=== PATIENT | male | born 1950 | race Caucasian/White ===

== ENCOUNTER 2017-06-27 18:10 | Observation (INO) | payer OTHER ==
[~2017-06-27] VITALS: Ht 165 cm; Wt 79.8 kg
--- NOTE | 2017-06-27 18:22 | ED CARDIAC/CP/PALPITATIONS ---
History of Present Illness General Chief Complaint: Chest Pain Stated Complaint: CP Source: patient, family Exam Limitations: language barrier Vital Signs & Intake/Output Vital Signs & Intake/Output Vital Signs Date Time Temp Pulse Resp B/P B/P Pulse O2 O2 Flow FiO2 Mean Ox Delivery Rate 06/30 0811 124/70 06 0600 98.1 63 20 124/76 97 03/05 2203 97.6 81 20 120/80 96 03/ 2147 68 128/70 03/05 1603 98.0 70 20 120/70 94 ED Intake and Output 06/30 0000 06/29 1200 Intake Total 860 0 Output Total 650 Balance 210 0 Intake, IV 60 Intake, Oral 800 0 Output, Urine 650 Patient 176 lb Weight Allergies Coded Allergies: No Known Allergies (06/27/17) Reconcile Medications Aspirin (Aspirin*) 81 MG TAB.CHEW 81 MG PO DAILY HEART Atorvastatin Calcium 20 MG TABLET 1 TAB PO DAILY CHOLESTEROL (Reported) [CARDIOPIRIN] (Unknown Strength) MG 1 TAB PO DAILY HEART (Reported) [LERCANIDIPINE/ENALPR] (Unknown Strength) 0.5 TAB PO BID BP (Reported) Metoprolol Tartrate (Lopressor) 100 MG TABLET 0.5 TAB PO BID HEART/BP ( Reported) Triage Nurses Notes Reviewed? yes Onset: Gradual Duration: week(s): Timing: recent history Quality/Severity: moderate Location: substernal Radiation: no radiation Activities at Onset: activity HPI: 67-year-old male with history of hypertension, hyperlipidemia presents emergency department complaining of chest pain intermittently 1 week. HPI obtained from the patient's daughter who is present for translation as patient does not speak Khmer. Chest pain is described as substernal, without radiation, exacerbated by exertion, associated with dyspnea. Currently, while the patient is at rest he denies active chest pain. Patient has no history of prior chest pain. Patient has seen a pan pusher formerly in [facility] however has been living in the [place] for 8 months and has had no primary care cardiology visits here. The patient's father had acute myocardial infarction at age of 61, patient's brother has had VT in his 50s. The patient denies tobacco use, drug use, presyncope, abdominal pain, fever, chills, vomiting. (Kati MARIN,Fallon Herring) Past History Travel History Traveled to [place] past 21 day No Medical History Any Pertinent Medical History? see below for history Neurological: NONE EENT: NONE Cardiovascular: hypertension Respiratory: NONE Gastrointestinal: NONE Hepatic: NONE Renal: NONE Musculoskeletal: NONE Psychiatric: NONE Endocrine: NONE Blood Disorders: NONE Cancer(s): NONE MORTGAGE OR LOAN UNDERWRITER/Reproductive: NONE Surgical History Surgical History: non-contributory Psychosocial History What is your primary language Setswana Tobacco Use: Never used ETOH Use: denies use Illicit Drug Use: denies illicit drug use Family History Family History, If Any: FATHER Relation not specified for: FH: myocardial infarction Hx Contributory? Yes (Fallon Gunderson) Review of Systems Review of Systems Constitutional: Reports: no symptoms. EENTM: Reports: no symptoms. Respiratory: Reports: see HPI. Cardiovascular: Reports: see HPI. GI: Reports: no symptoms. Genitourinary: Reports: no symptoms. Musculoskeletal: Reports: no symptoms. Skin: Reports: no symptoms. Neurological/Psychological: Reports: no symptoms. Hematologic/Endocrine: Reports: no symptoms. Immunologic/Allergic: Reports: no symptoms. All Other Systems: Reviewed and Negative (Fallon Gunderson) Physical Exam Physical Exam General Appearance: well developed/nourished, no apparent distress, alert, awake Head: atraumatic, normal appearance Eyes: Bilateral: normal appearance. Ears, Nose, Throat: hearing grossly normal Neck: normal inspection, supple, full range of motion Respiratory: normal breath sounds, chest non-tender, no respiratory distress, lungs clear Cardiovascular: regular rate/rhythm, normal peripheral pulses Peripheral Pulses: 2+ radial (R), 2+ radial (L) Gastrointestinal: normal bowel sounds, soft, non-tender, no organomegaly Back: normal inspection, normal range of motion Extremities: normal inspection, normal range of motion, no edema Neurologic/Psych: awake, alert, oriented x 3 Skin: intact, normal color, warm/dry Core Measures ACS in differential dx? Yes CVA/TIA Diagnosis No Sepsis Present: No Sepsis Focused Exam Completed? No (Fallon Gunderson) Progress Differential Diagnosis: AMI, atrial fibrillation, CHF/pulm edema, costochondritis Plan of Care: Orders Procedure Date/time Status BASIC ELECTROLYTES PLUS BUN&CR 06/30 0600 Complete Discharge Patient 06/30 UNK Active Laboratory Tests 06/30/17 0652: Anion Gap 11, Estimated GFR > 60, BUN/Creatinine Ratio 19.1 03/05/18 1500: APTT Cancelled Patient's EKG in sinus rhythm with PVCs. Troponin negative, chest x-ray within normal limits. Spoke with Dr. Lilly regarding this patient - given patient's chest pain on exertion telemetry observation recommended to further rule out acute coronary syndome. Patient is already on statin medication, will initiate aspirin 325 daily. Patient and he daughter agree to stay for futher evaluation of his chest pain. Discussed patient with Dr. Akhtar and hospitalist Dr. Garrett regarding telemetry observation. Diagnostic Imaging: Viewed by Me: Radiology Read. Discussed w/RAD: Radiology Read. Radiology Impression: PATIENT: HIREN DAVISON PRESENT AGE: 67 PATIENT ACCOUNT NO: [id number] : 52 LOCATION: [facility] ORDERING PHYSICIAN: Fallon MARIN SERVICE DATE: 06/27/17 EXAM TYPE: RAD - XRY-CHEST XRAY, TWO VIEWS EXAMINATION: XR CHEST CLINICAL INFORMATION: Chest pain. Dyspnea. COMPARISON: None TECHNIQUE: 2 views of the chest were obtained. FINDINGS: No significant abnormality is noted involving the heart, lungs, mediastinum, bony thorax or soft tissues. Age indeterminant L1 vertebral body anterior wedging. IMPRESSION: No acute pulmonary pathology demonstrated. No radiographic explanation for the patient's clinical symptoms. Age indeterminant L1 vertebral body anterior wedging. DICTATED BY: Preston Paul MD DATE/TIME DICTATED:06/27/171918 PAPER SHEETER:RASHARD DATE/TIME TRANSCRIBED:1918 CONFIDENTIAL, DO NOT COPY WITHOUT APPROPRIATE AUTHORIZATION. < Electronically signed in Other Vendor System> SIGNED BY: Preston Paul MD 06/27/171921 Initial ED EKG: sinus rhythm @78bpm, PVCs, nonspecific ST changes (Kati MARIN,Fallon Herring) Departure Departure Disposition: STILL A PATIENT Condition: Stable Clinical Impression Primary Impression: Chest pain Qualifiers: Chest pain type: unspecified Qualified Code: R07.9 - Chest pain, unspecified Secondary Impressions: Unstable angina Departure Forms: Customer Survey General Discharge Information Prescriptions: Current Visit Scripts Aspirin (Aspirin*) 81 MG PO DAILY #30 TAB Observation Note Spoke With: Hoa Sidhu MDakosua Place Patient In: Non-ED OBS Care Area Rationale for Observation: My rational for observation is as follows [chest pain and dyspnea requiring ACS rule out, repeat EKGs and troponins, cardiology consult, medication adjustment, premature discharge would be medically unsafe.]. (Kati MARIN,Fallon Herring) PA/HOOK UP DRIVER Co-Sign Statement Statement: ED Attending supervision documentation- x I saw and evaluated the patient. I have also reviewed all the pertinent lab results and diagnostic results. I agree with the findings and the plan of care as documented in the PA's/HOOK UP DRIVER's documentation. exertional chest pain, poor f/u care [] I have reviewed the ED Record and agree with the PA's/HOOK UP DRIVER's documentation. [] Additions or exceptions (if any) to the PAs/HOOK UP DRIVER's note and plan are summarized below: [] (Giovana HDEZ,Dillon) Critical Care Note Critical Care Note Critical Care Time: non-applicable (Fallon Gunderson)
[2017-06-27 18:48] LABS: ABSOLUTE BASOPHIL COUNT 0.1 /CUMM (0.0-0.2); ABSOLUTE EOSINOPHIL COUNT 0.5 /CUMM (0.0-0.7); ABSOLUTE GRANULOCYTE CT 5.7 /CUMM (1.4-6.5); ABSOLUTE LYMPH COUNT 3.9 /CUMM (1.2-3.4); BASOPHIL % 0.7 % (0.0-2.0); EOSINOPHIL % 4.8 % (0-5); HEMATOCRIT 45.9 % (42-52); MEAN CORPUSCULAR HGB 30.3 PG (27.0-31.0); MEAN CORPUSCULAR HGB CONC 33.1 G/DL (33.0-37.0); MEAN CORPUSCULAR VOLUME 91.8 FL (80.0-94.0); PLATELET COUNT 229 /CUMM (130-400); RBC DISTRIBUTION WIDTH 13.9 % (11.5-14.5); WHITE BLOOD CELL COUNT 11.1 /CUMM (4.8-10.8)
[2017-06-27] MEDS ORDERED: ATORVASTATIN CA20 M1 PO (19:10)
[2017-06-27] MEDS ORDERED: LOPRESSOR100 M1 PO (19:10)
[2017-06-27] MEDS ORDERED: [UNRECOGNIZED DRUG - MIXTURE] PO (19:13)
[2017-06-27] MEDS ORDERED: [UNRECOGNIZED DRUG - OTHER] PO (19:14)
--- NOTE | 2017-06-27 19:22 | RADIOLOGY REPORT ---
EXAMINATION: XR CHEST CLINICAL INFORMATION: Chest pain. Dyspnea. COMPARISON: None TECHNIQUE: 2 views of the chest were obtained. FINDINGS: No significant abnormality is noted involving the heart, lungs, mediastinum, bony thorax or soft tissues. Age indeterminant L1 vertebral body anterior wedging. IMPRESSION: No acute pulmonary pathology demonstrated. No radiographic explanation for the patient's clinical symptoms. Age indeterminant L1 vertebral body anterior wedging.
--- NOTE | 2017-06-27 21:18 | History & Physical ---
LaurentUlysses garcia 06/27/172116: General Information and HPI MD Statement: I have seen and personally examined HIREN DAVISON and documented this H&P. The patient is a 67 year old M who presented with a patient stated chief complaint of [Chest pain]. Source of Information: patient, family Exam Limitations: no limitations History of Present Illness: is a 67 yo man with PMHx. of HTN, HLD presented to ED with a c/o chest pain. Patient is maltese speaker, his daughter at bedside translating, he reprot that he has chest pain started last while he was sleeping, the pain is pressure in nature, mainly in the left side of the chest, constant, with no aggrevating or releiving factors, does not related to changing position, not associated with orthopnea or PND, no leg swelling. Pain associated with nausea, he couldn't through up, he felt he is bloaded, with decrease oral intake over the last few days because of that, he also felt dizzy, diaphoretic, unsteady gait, and he report feeling his heart beat, no LOC and no recent trauma. Patient also report frequency and burning sensation with urination. He report feeling SOB at rest, no sore throat or cough, no fever or chills and no change in bowel habits. He recently moved [place], no PCP yet. Never had this kind of chest pain, never been hospitalized except for remote history of fall and back injury. Never had stress test. Allergies/Medications Allergies: Coded Allergies: No Known Allergies (06/27/17) Past History Travel History Traveled to [place] past 21 day No Medical History Neurological: NONE EENT: NONE Cardiovascular: hypertension Respiratory: NONE Gastrointestinal: NONE Hepatic: NONE Renal: NONE Musculoskeletal: NONE Psychiatric: NONE Endocrine: NONE Blood Disorders: NONE Cancer(s): NONE QUALITY OFFICER/Reproductive: NONE Surgical History Surgical History: non-contributory Past Family/Social History Family History Relations & Conditions if any FATHER Relation not specified for: FH: myocardial infarction Psychosocial History Smoking Status: Former Smoker (quit 20 years ago) ETOH Use: denies use Illicit Drug Use: denies illicit drug use Review of Systems Review of Systems Constitutional: Reports: diaphoresis. EENTM: Reports: see HPI. Cardiovascular: Reports: chest pain, palpitations. Respiratory: Reports: short of breath. GI: Reports: bloating. Genitourinary: Reports: dysuria, frequency. Musculoskeletal: Reports: no symptoms. Skin: Reports: no symptoms. Neurological/Psychological: Reports: no symptoms. Hematologic/Endocrine: Reports: no symptoms. Immunologic/Allergic: Reports: no symptoms. All Other Systems: Reviewed and Negative Exam & Diagnostic Data Last 24 Hrs of Vital Signs/I&O Vital Signs Date Time Temp Pulse Resp B/P B/P Pulse O2 O2 Flow FiO2 Mean Ox Delivery Rate 06/27 2113 97.0 62 20 130/71 96 Room Air 06/27 1852 97 Room Air Room Air 06/27 1820 97.7 74 18 163/88 96 Room Air Physical Exam General Appearance Alert, Oriented X3, Cooperative, Mild Distress Skin No Rashes, No Breakdown, No Significant Lesion Skin Temp/Moisture Exam: Warm/Dry HEENT Atraumatic, PERRLA, EOMI, Mucous Membr. moist/pink Neck Supple, No JVD Lymphatic Axillary nl, Cervical nl Cardiovascular Regular Rate, Normal S1, Normal S2, No Murmurs Lungs Clear to Auscultation, Normal Air Movement, basilar crackles Abdomen Normal Bowel Sounds, Soft, No Tenderness Neurological Normal Speech, Strength at 5/5 X4 Ext, Sensation Intact, Cranial Nerves 3-12 NL Extremities No Edema, Normal Pulses Vascular Normal Pulses, Pulses Symmetrical Last 24 Hrs of Labs/Wil: Laboratory Tests 06/27/17 2210: Phosphorus 3.7, Magnesium 2.1, Troponin I < 0.01 06/27/17 1838: Anion Gap 12, Estimated GFR 51 L, BUN/Creatinine Ratio 13.6, Glucose 102 H, Calcium 9.8, Total Bilirubin 0.5, AST 23, ALT 35, Alkaline Phosphatase 81, Troponin I < 0.01, Total Protein 7.4, Albumin 4.2, Globulin 3.2, Albumin/ Globulin Ratio 1.3, CBC w Diff NO MAN DIFF REQ, RBC 5.00, MCV 91.8, MCH 30.3, MCHC 33.1, RDW 13.9, MPV 8.0, Gran % 51.0, Lymphocytes % 34.6, Monocytes % 8.9, Eosinophils % 4.8, Basophils % 0.7, Absolute Granulocytes 5.7, Absolute Lymphocytes 3.9 H, Absolute Monocytes 1.0 H, Absolute Eosinophils 0.5, Absolute Basophils 0.1 Diagnostic Data EKG Results SR, PVC, LEFT AXIS DEVIATION CXR Results IMPRESSION: No acute pulmonary pathology demonstrated. No radiographic explanation for the patient's clinical symptoms. Age indeterminant L1 vertebral body anterior wedging. Assessment/Plan Assessment: is a 67 yo man with PMHx. of HTN, HLD presented to ED with a c/o chest pain. His chest pain is pressure in nature, substernal, not relieved with rest, no nitroglycerin given prior to encounter, never had this kind of pain before, his pain metastases to out of 3 components of anginal pain so he has a typical chest pain. Admitted for unstable angina to rule out PA with serial EKG and troponin. Labs, imaging, as above Assessment: #Unstable angina in the setting of left axis deviation, PVCs and nonspecific ST- T wave changes with no previous EKG to compare in a patient who is on beta genesis and calcium channel genesis at home. #Urinary frequency and dysuria #History of hypertension #History of hyperlipidemia Plan: * The case was discussed with Dr. Lilly and the plan is to start IV heparin * Will trend troponins and EKG * Nitroglycerin sublingual, followed by NITRO PAST * Will start his home dose of beta genesis, will hold on calcium channel genesis * He was given high-dose aspirin at the emergency department, will start baby aspirin from tomorrow, if he start to have positive troponin start Brilinta * Patient needs cardiac catheterization, discuss with inner tube inserter about Gbiib/ iiia prior transfer to PCI tomorrow * If patient started to have positive troponin start Brilinta * High-dose statin * Echocardiogram * Will check lipid panel, thyroid function tests * Will check magnesium, potassium and phosphate and replete as needed * Will add HbA1c to his labs * Will send UA * Case management consult at a.m. as patient has no insurance DVT prophylaxis heparin GTT Full code As Ranked By This Provider Problem List: 1. Unstable angina 2. Chest pain Qualifiers Chest pain type: unspecified Qualified Code: R07.9 - Chest pain, unspecified Core Measures/Misc (01/11) Acute Coronary Syndrome ACS Diagnosis: Yes Congestive Heart Failure Congestive Heart Failure Diagnosis No Cerebrovascular Accident CVA/TIA Diagnosis: No (decreasing to 100) VTE (View Protocol) VTE Risk Factors Acute Medical Illness (he was in our) No Mechanical VTE Prophylaxis d/t N/A MechProphylax Ordered (he) No VTE Pharm Prophylaxis d/t NA PharmProphylax ordered Sepsis (View protocol) Sepsis Present: No Nahum HDEZ, [facility] 06/27/172209: General Information and HPI Allergies/Medications Home Med list Atorvastatin Calcium 20 MG TABLET 1 TAB PO DAILY CHOLESTEROL (Reported) [CARDIOPIRIN] (Unknown Strength) MG 1 TAB PO DAILY HEART (Reported) [LERCANIDIPINE/ENALPR] (Unknown Strength) 0.5 TAB PO BID BP (Reported) Metoprolol Tartrate (Lopressor) 100 MG TABLET 0.5 TAB PO BID HEART/BP ( Reported) Attending MD Review Statement Attending Statement Attending MD Statement: examined this patient, discuss w/resident/PA/BODY TRIMMER, agreed w/resident/PA/BODY TRIMMER, discussed with family, reviewed images, amended to note Attending Assessment/Plan: 67 yo M, primarily Wolof speaking, with h/o HTN, HLD, and strong family h/o CAD, is brought in for evaluation of chest pressure and dyspnea for the past 1 week. Patient reports left sided sharp chest pain under his left breast that is worse with breathing, and more recent substernal band like pressure sensation radiating to both arms that occurs on exertion and at rest, rating it at 7/10 at the time of evaluation. He felt the discomfort initially when he walked up a flight of stairs, subsequently he noted chest pressure at rest that lasted 5 hours last week. Symptoms are intermittent and are associated with dyspnea, nausea, palpitations and diaphoresis. Daughter took BP at home and it was elevated to 150-160/90-100. Patient has never had similar symptoms in the past. He also reports feeling bloated, has poor PO intake, denies heartburn. On ROS, he reports urinary frequency and burning sensation which daughter attributes to his prostate. Patient reports no prior h/o CAD or PA. He used to follow a inner tube inserter at [facility] but has not set up PCP or inner tube inserter since he moved to the 8 months ago. He has no insurance. His father is at age 61 from PA, and younger brother underwetn CABG at age 50 yrs. Patient is an ex-smoker, had a 20 pack smoking history, quit 15 yrs ago. His meds include: - Lercanidipine/enalapril (CCB/TOMAS-I)10/20 mg 1/2 tablet once daily - Cardiopirin (acetylsalicylic acid) 100 mg once daily - Corvitol (metoprolol) 100 mg 1/2 tablet BID - Atorvastatin 20 mg once daily Vitals stable. Examination unremarkable. Labs: WBC 11.1, Creat 1.4 (no baseline available), glucose 102, LFTs normal, troponin <0.01. CXR: no acute pathology. Age indeterminate L1 vertebral body anterior wedging. EKG: sinus rhythm, LAD, PVC's, Qtc 438, subtle T-wave flattening in inferior leads (no old EKG to compare). Assessment and plan: 1. Unstable angina 2. Essential hypertension 3. Hyperlipidemia 4. Family h/o CAD 5. BHUPENDRA vs. CKD - 23 hour observation on Telemetry - Monitor for arrhythmias - Initiate SL nitro and assess for symptom relief - Will consider addition of nitro paste if BP allows - Aspirin 325 mg given in ER, will start 81 mg from AM - IV heparin per PTT protocol (guaiac negative) - Continue metoprolol 50 mg BID and atorvastatin increase to 80 mg daily - Check lipid panel, TSH, free T4, HbA1c - Serial EKG and troponin - Obtain echo to assess LV function, valvular disorders, pulmonary hypertension - Cardio consult (Dr. Lilly) we discussed plan with him in the ER - If any new EKG changes or elevated troponin or persistent chest pain, may need urgent cardiac cath. - Check UA to rule out UTI - Gentle hydration, recheck BUN/ creat in AM - Case management consult patient has no insurance and daughter is worried about the expenses. Please have employment case manager discuss this with daughter. DVT ppx IV heparin. Full code Observation Initial Note - I have personally examined HIREN DAVISON on 06/27/17 at 2211. The disposition of HIREN DAVISON is uncertain at this time and before a determination can be made, he requires a period of observation for the following reasons [Unstable angina]
--- NOTE | 2017-06-27 21:48 | Cons- Cardiology ---
General Information and HPI Consulting Request Date of Consult: 06/27/17 Requested By: Nahum HDEZ,Sandra Reason for Consult: Chest pain History of Present Illness: The patient is a 67-year-old male with history of hypertension and hyperlipidemia who presents with chest pain. The patient is [place] speaking, and is seen with his daughter translating. He reports intermittent left-sided chest pain which has been occurring with exertion over the past week. He also notes that for the past few days he has had a constant left-sided chest pressure which is a 3 out of 10 without radiation. No shortness of breath. No diaphoresis. No palpitations. No lightheadedness or dizziness. No nausea or vomiting Allergies/Medications Allergies: Coded Allergies: No Known Allergies (06/27/17) Home Med List: Atorvastatin Calcium 20 MG TABLET 1 TAB PO DAILY CHOLESTEROL (Reported) [CARDIOPIRIN] (Unknown Strength) MG 1 TAB PO DAILY HEART (Reported) [LERCANIDIPINE/ENALPR] (Unknown Strength) 0.5 TAB PO BID BP (Reported) Metoprolol Tartrate (Lopressor) 100 MG TABLET 0.5 TAB PO BID HEART/BP ( Reported) Current Medications: Current Medications Sig/Terell Start time Last Medication Dose Route Stop Time Status Admin Aspirin 81 MG DAILY 06/28 1000 AC 06/28 PO 0841 Aspirin 0 .STK-MED ONE 06/27 2038 DC PO Aspirin 325 MG DAILY 06/27 2013 DC 06/27 PO 2036 Atorvastatin Calcium 40 MG 1700 06/28 1700 DC PO Atorvastatin Calcium 80 MG 1700 06/28 1700 AC PO Heparin Sodium 5,160 UNIT ONCE ONE 06/28 0830 DC (Porcine) IV 06/28 0831 Heparin Sodium 5,000 UNIT Q8 06/27 2200 CAN (Porcine) SC Heparin Sodium 25,000 UNIT Q24H 06/27 2200 AC 06/28 (Porcine) IV 0000 Sodium Chloride 500 ML Metoprolol Tartrate 50 MG BID 06/28 1000 AC 06/28 PO 0841 Nitroglycerin 0.2 MG DAILY 06/28 1000 DC TOP Nitroglycerin 0 .STK-MED ONE 06/27 2214 DC SL Nitroglycerin 0.2 MG DAILY 06/27 2200 DC TOP Nitroglycerin 0.4 MG ONCE ONE 06/27 2200 DC 06/27 SL 06/27 2200 2210 Sodium Chloride 1,000 ML Q13H 06/27 2130 DC 06/27 IV 06/28 1029 2309 Review of Systems Review of Systems: No rash. No tremor. No melena. All other systems were reviewed, and were noted to be negative. Past History Travel History Traveled to [place] past 21 day No Medical History Neurological: NONE EENT: NONE Cardiovascular: hypertension Respiratory: NONE Gastrointestinal: NONE Hepatic: NONE Renal: NONE Musculoskeletal: NONE Psychiatric: NONE Endocrine: NONE Blood Disorders: NONE Cancer(s): NONE GOLD LAYER/Reproductive: NONE Surgical History Surgical History: non-contributory Family History Relations & Conditions If Any: FATHER Relation not specified for: FH: myocardial infarction Psychosocial History ETOH Use: denies use Illicit Drug Use: denies illicit drug use Exam & Diagnostic Data Vital Signs and I&O Vital Signs Date Time Temp Pulse Resp B/P B/P Pulse O2 O2 Flow FiO2 Mean Ox Delivery Rate 06/28 0841 96 160/84 06/28 0600 98.4 69 18 134/78 95 06/27 2114 97.0 62 20 130/71 96 Room Air 06/27 1852 97 Room Air Room Air 06/27 1820 97.7 74 18 163/88 96 Room Air Intake & Output 06/28 1600 06/28 0800 06/28 0000 06/27 1600 06/27 0800 06/27 0000 Intake Total 748.8 Output Total 300 Balance 448.8 Intake, IV 748.8 Output, Urine 300 Patient 191 lb Weight Physical Exam: Gen: The patient is in no acute distress HEENT: Normal nose, ears, and oropharynx. Pupils equal bilaterally. Conjunctiva normal. Neck: Supple with no JVD, no masses, and no thyromegaly Lungs: Clear to auscultation with normal respiratory effort Heart: RRR, S1, S2, no murmurs. No peripheral edema, 2+ pulses in the lower extremities bilaterally Abdomen: Soft, nontender, no masses. No hepatomegaly. No splenomegaly Extremities: No clubbing or cyanosis. Normal muscle strength in the upper and lower extremities Skin: Normal skin turgor with no skin ulcers or lesions noted. Neuro: Cranial nerves intact. Sensation intact Psych: Alert and oriented x 3 with appropriate affect Labs/Wil Results: Laboratory Tests 06/28 06/28 06/28 0615 0610 0030 Chemistry Troponin I (<0.11 ng/ml) < 0.01 Cancelled Triglycerides (<150 mg/dL) 134 Cholesterol (< 200 MG/DL) 126 LDL Cholesterol, Calc (65 - 129 mg/dL) 63 L HDL Cholesterol (40 - 60 mg/dL) 37 L Cholesterol/HDL Ratio (0.00 - 4.88 %) 3 TSH (0.270 - 4.200 uIU/mL) 0.439 Free T4 (0.78 - 2.44 ng/dL) 1.32 Coagulation APTT (25 - 37 SEC) 37 Urines Urine Color (YEL,AMB,STR) YEL Urine Clarity (CLEAR) CLEAR Urine pH (5.0 - 8.0) 6.0 Ur Specific [place] (1.001 - 1.035) 1.025 Urine Protein (NEG,<30 MG/DL) NEG Urine Ketones (NEG) NEG Urine Nitrite (NEG) NEG Urine Bilirubin (NEG) NEG Urine Urobilinogen (0.1 - 1.0 EU/dl) 0.2 Ur Leukocyte Esterase (NEG) NEG Ur Microscopic EXAM NOT REQUIRED Urine Hemoglobin (NEG) NEG Urine Glucose (N MG/DL) NEG 06/27 06/27 2210 1838 Chemistry Sodium (137 - 145 mmol/L) 141 Potassium (3.5 - 5.1 mmol/L) 4.1 4.1 Chloride (98 - 107 mmol/L) 105 Carbon Dioxide (22 - 30 mmol/L) 24 Anion Gap (5 - 16) 12 BUN (9 - 20 mg/dL) 19 Creatinine (0.7 - 1.2 mg/dL) 1.4 H Estimated GFR (>60 ml/min) 51 L BUN/Creatinine Ratio (7 - 25 %) 13.6 Glucose (65 - 99 mg/dL) 102 H Hemoglobin A1c (4.2 - 5.8 %) Pending Calcium (8.4 - 10.2 mg/dL) 9.8 Phosphorus (2.5 - 4.5 mg/dL) 3.7 Magnesium (1.6 - 2.3 mg/dL) 2.1 Total Bilirubin (0.2 - 1.3 mg/dL) 0.5 AST (17 - 59 U/L) 23 ALT (21 - 72 U/L) 35 Alkaline Phosphatase (< 127 U/L) 81 Troponin I (<0.11 ng/ml) < 0.01 < 0.01 Total Protein (6.3 - 8.2 g/dL) 7.4 Albumin (3.5 - 5.0 g/dL) 4.2 Globulin (1.9 - 4.2 gm/dL) 3.2 Albumin/Globulin Ratio (1.1 - 2.2 %) 1.3 Hematology CBC w Diff NO MAN DIFF REQ WBC (4.8 - 10.8 /CUMM) 11.1 H RBC (4.70 - 6.10 /CUMM) 5.00 Hgb (14.0 - 18.0 G/DL) 15.2 Hct (42 - 52 %) 45.9 MCV (80.0 - 94.0 FL) 91.8 MCH (27.0 - 31.0 PG) 30.3 MCHC (33.0 - 37.0 G/DL) 33.1 RDW (11.5 - 14.5 %) 13.9 Plt Count (130 - 400 /CUMM) 229 MPV (7.4 - 10.4 FL) 8.0 Gran % (42.2 - 75.2 %) 51.0 Lymphocytes % (20.5 - 51.1 %) 34.6 Monocytes % (1.7 - 9.3 %) 8.9 Eosinophils % (0 - 5 %) 4.8 Basophils % (0.0 - 2.0 %) 0.7 Absolute Granulocytes (1.4 - 6.5 /CUMM) 5.7 Absolute Lymphocytes (1.2 - 3.4 /CUMM) 3.9 H Absolute Monocytes (0.10 - 0.60 /CUMM) 1.0 H Absolute Eosinophils (0.0 - 0.7 /CUMM) 0.5 Absolute Basophils (0.0 - 0.2 /CUMM) 0.1 Diagnostic Data EKG Results EKG tracings independently reviewed, and reveals normal sinus rhythm with borderline T-wave of normality and premature ventricular contraction CXR Results No acute pulmonary pathology demonstrated. No radiographic explanation for the patient's clinical symptoms. Age indeterminant L1 vertebral body anterior wedging. Assessment/Plan Assessment/Plan Assessment: 1. Chest pain, possible unstable angina 2. Premature ventricular contractions Plan: * Start aspirin 81 mg daily * Nitroglycerin paste * Statin * Continue metoprolol * Echocardiogram * Check serial troponin Consult Acknowledgment - Thank you for your consult request.
[2017-06-28 06:00] VITALS: BP 134/78
[2017-06-28 08:26] LABS: PTT 37 SEC (25-37)
--- NOTE | 2017-06-28 08:36 | PN- Housestaff ---
Jhonatan Hernández 06/28/17 0835: Subjective Follow-up For: Unstable angina Subjective: Patient reports SOB overnight Review of Systems Constitutional: Reports: see HPI. Objective Last 24 Hrs of Vital Signs/I&O Vital Signs Date Time Temp Pulse Resp B/P B/P Pulse O2 O2 Flow FiO2 Mean Ox Delivery Rate 06/28 1431 98.5 72 18 142/84 94 Room Air / 0841 96 160/84 / 0600 98.4 69 18 134/78 95 06/27 2114 97.0 62 20 130/71 96 Room Air 06/27 1852 97 Room Air Room Air 06/27 1820 97.7 74 18 163/88 96 Room Air Intake & Output 06/28 1600 06/28 0800 06/28 0000 Intake Total 1100 748.8 Output Total 300 Balance 1100 448.8 Intake, IV 600 748.8 Intake, Oral 500 Output, Urine 300 Patient 191 lb Weight Physical Exam General Appearance: Alert, Oriented X3, Cooperative, No Acute Distress, Language barrier Cardiovascular: Regular Rate, Normal S1, Normal S2 Lungs: Clear to Auscultation, Normal Air Movement Abdomen: Normal Bowel Sounds, Soft, No Tenderness Extremities: No Edema Current Medications: Current Medications Sig/Terell Start time Last Medication Dose Route Stop Time Status Admin Aspirin 81 MG DAILY 06/28 1000 AC 06/28 PO 0841 Aspirin 0 .STK-MED ONE 06/27 2039 DC PO Aspirin 325 MG DAILY 06/27 2013 DC 06/27 PO 2036 Atorvastatin Calcium 40 MG 1700 06/28 1700 DC PO Atorvastatin Calcium 80 MG 1700 06/28 1700 AC PO Heparin Sodium 5,160 UNIT ONCE ONE 06/28 0830 DC 06/28 (Porcine) IV 06/28 0831 1057 Heparin Sodium 5,000 UNIT Q8 06/27 2200 CAN (Porcine) SC Heparin Sodium 25,000 UNIT Q24H 06/27 2200 AC 06/28 (Porcine) IV 0000 Sodium Chloride 500 ML Metoprolol Tartrate 50 MG BID 06/28 1000 AC 06/28 PO 0841 Nitroglycerin 0.2 MG DAILY 06/28 1000 DC TOP Nitroglycerin 0 .STK-MED ONE 06/27 2214 DC SL Nitroglycerin 0.2 MG DAILY 06/27 220 DC TOP Nitroglycerin 0.4 MG ONCE ONE 03/2199 DC 06/27 SL 06/27 2201 2210 Sodium Chloride 1,000 ML Q13H 06/27 2130 DC 06/27 IV 06/28 1029 2309 Last 24 Hrs of Lab/Wil Results Last 24 Hrs of Labs/Mics: Laboratory Tests 06/28/17 0615: Troponin I < 0.01, Triglycerides 134, Cholesterol 126, LDL Cholesterol, Calc 63 L, HDL Cholesterol 37 L, Cholesterol/HDL Ratio 3, TSH 0.439, Free T4 1.32, APTT 37 06/28/17 0610: Urine Color YEL, Urine Clarity CLEAR, Urine pH 6.0, Ur Specific [place] 1.025, Urine Protein NEG, Urine Ketones NEG, Urine Nitrite NEG, Urine Bilirubin NEG, Urine Urobilinogen 0.2, Ur Leukocyte Esterase NEG, Ur Microscopic EXAM NOT REQUIRED, Urine Hemoglobin NEG, Urine Glucose NEG 06/28/17 0030: Troponin I Cancelled 06/27/17 221: Phosphorus 3.7, Magnesium 2.1, Troponin I < 0.01 06/27/17 1838: Anion Gap 12, Estimated GFR 51 L, BUN/Creatinine Ratio 13.6, Glucose 102 H, Hemoglobin A1c Pending, Calcium 9.8, Total Bilirubin 0.5, AST 23, ALT 35, Alkaline Phosphatase 81, Troponin I < 0.01, Total Protein 7.4, Albumin 4.2, Globulin 3.2, Albumin/Globulin Ratio 1.3, CBC w Diff NO MAN DIFF REQ, RBC 5.00, MCV 91.8, MCH 30.3, MCHC 33.1, RDW 13.9, MPV 8.0, Gran % 51.0, Lymphocytes % 34.6, Monocytes % 8.9, Eosinophils % 4.8, Basophils % 0.7, Absolute Granulocytes 5.7, Absolute Lymphocytes 3.9 H, Absolute Monocytes 1.0 H, Absolute Eosinophils 0.5, Absolute Basophils 0.1 Assessment/Plan Assessment: is a 67 yo man with PMHx. of HTN, HLD presented to ED with a c/o chest pain. His chest pain is pressure in nature, substernal, not relieved with rest, no nitroglycerin given prior to encounter, never had this kind of pain before, his pain metastases to out of 3 components of anginal pain so he has a typical chest pain. Admitted for unstable angina to rule out DC with serial EKG and troponin. Problem list: Unstable angina Plan: * Cardiology recommendations appreciated * Continue IV heparin * Nothing by mouth for possible nuclear stress test in the morning * Repeat ECG this morning shows [place] prolongation (212) and unchanged T-wave inversion * ECHO pending * D-dimer negative * Lipid panel, TSH/free T4 nl * UA negative * Monitor white count * Continue ASA, metoprolol, atorvastatin Problem List: 1. Unstable angina Pain Ratin Pain Location: NA Pain Goal: Remain pain free Pain Plan: NA Tomorrow's Labs & Rationales: BEP for renal function Jose HDEZ,Terrancekonstantinwolf 06/28/17 1203: Attending MD Review Statement Attending Statement Attending MD Statement: examined this patient, discuss w/resident/PA/[employer] SALES DELIVERER, agreed w/resident/PA/[employer] SALES DELIVERER, discussed with family, reviewed EMR data (avail), discussed with nursing, amended to note Attending Assessment/Plan: Patient seen and examined. Resting comfortably not in any acute distress. Family present at the bedside. I spoke with the patient using the deaf interpreter phone. Denies any chest pain or palpitations at present. He does complain of shortness of breath. Cardiac films of the currently negative. On examination heart sounds are regular. Lungs are clear to auscultation. Abdomen soft and nontender. He has no peripheral edema. Recommendations: -Repeat EKG today. -Obtain d-dimer to rule out pulmonary embolism as etiology of his unexplained shortness of breath. -Follow-up results of echocardiogram done today. -Cardiology follow-up appreciated. Patient will be scheduled for stress test tomorrow. -Plan of care discussed with family.
[2017-06-28 14:31] VITALS: BP 142/84
[2017-06-28 14:38] LABS: PTT > 120 SEC (25-37)
--- NOTE | 2017-06-28 15:50 | PN- Cardiology ---
Subjective Subjective: The patient is feeling better. No further chest pain. No shortness of breath. No diaphoresis. No palpitations Objective Vital Signs and I&Os Vital Signs Date Time Temp Pulse Resp B/P B/P Pulse O2 O2 Flow FiO2 Mean Ox Delivery Rate 06/28 1431 98.5 72 18 142/84 94 Room Air / 0841 96 160/84 / 0600 98.4 69 18 134/78 95 06/27 2114 97.0 62 20 130/71 96 Room Air 06/27 1852 97 Room Air Room Air 06/27 1820 97.7 74 18 163/88 96 Room Air Intake & Output 06/28 1600 06/28 0800 06/28 0000 06/27 1600 06/27 0800 06/27 0000 Intake Total 1100 748.8 Output Total 300 Balance 1100 448.8 Intake, IV 600 748.8 Intake, Oral 500 Output, Urine 300 Patient 191 lb Weight Physical Exam: Gen: NAD HEENT: normal Lungs: clear to auscultation, normal resp. effort Heart: RRR, S1, S2, no murmurs Abdomen: Soft, nontender, no masses Extremities: No clubbing, cyanosis, or edema. Neuro: Alert and oriented x 3, cranial nerves intact Current Medications: Current Medications Sig/Terell Start time Last Medication Dose Route Stop Time Status Admin Apixaban 2.5 MG BID 06/28 1446 DC PO Aspirin 81 MG DAILY 06/28 1000 AC 06/28 PO 0841 Aspirin 0 .STK-MED ONE 06/27 2039 DC PO Aspirin 325 MG DAILY 06/27 2013 DC 06/27 PO 2036 Atorvastatin Calcium 40 MG 1700 06/28 1700 DC PO Atorvastatin Calcium 80 MG 1700 06/28 1700 AC PO Diltiazem HCl 120 MG DAILY 06/28 1446 DC PO Heparin Sodium 5,160 UNIT ONCE ONE 06/28 0830 DC 06/28 (Porcine) IV 06/28 0831 1057 Heparin Sodium 5,000 UNIT Q8 06/27 2200 CAN (Porcine) SC Heparin Sodium 25,000 UNIT Q24H 06/27 2200 AC 06/28 (Porcine) IV 0000 Sodium Chloride 500 ML Metoprolol Tartrate 50 MG BID 06/28 1000 AC 06/28 PO 0841 Nitroglycerin 0.2 MG DAILY 06/28 1000 DC TOP Nitroglycerin 0 .STK-MED ONE 06/27 2213 DC Nitroglycerin 0.2 MG DAILY 06/27 2199 DC TOP Nitroglycerin 0.4 MG ONCE ONE 06/27 2199 DC 06/27 SL 06/271 2210 Sodium Chloride 1,000 ML Q13H 06/27 2129 DC 06/27 IV 06/28 1029 2309 Results Last 48 Hrs of Labs/Mics: Laboratory Tests 06/28/17 1200: APTT > 120 *H 06/28/17 0615: Troponin I < 0.01, Triglycerides 134, Cholesterol 126, LDL Cholesterol, Calc 63 L, HDL Cholesterol 37 L, Cholesterol/HDL Ratio 3, TSH 0.439, Free T4 1.32, APTT 37, D-Dimer High Sensitivty < 200 06/28/17 0610: Urine Color YEL, Urine Clarity CLEAR, Urine pH 6.0, Ur Specific [place] 1.025, Urine Protein NEG, Urine Ketones NEG, Urine Nitrite NEG, Urine Bilirubin NEG, Urine Urobilinogen 0.2, Ur Leukocyte Esterase NEG, Ur Microscopic EXAM NOT REQUIRED, Urine Hemoglobin NEG, Urine Glucose NEG 06/28/17 0030: Troponin I Cancelled 06/27/17 2210: Phosphorus 3.7, Magnesium 2.1, Troponin I < 0.01 06/27/17 1838: Anion Gap 12, Estimated GFR 51 L, BUN/Creatinine Ratio 13.6, Glucose 102 H, Hemoglobin A1c Pending, Calcium 9.8, Total Bilirubin 0.5, AST 23, ALT 35, Alkaline Phosphatase 81, Troponin I < 0.01, Total Protein 7.4, Albumin 4.2, Globulin 3.2, Albumin/Globulin Ratio 1.3, CBC w Diff NO MAN DIFF REQ, RBC 5.00, MCV 91.8, MCH 30.3, MCHC 33.1, RDW 13.9, MPV 8.0, Gran % 51.0, Lymphocytes % 34.6, Monocytes % 8.9, Eosinophils % 4.8, Basophils % 0.7, Absolute Granulocytes 5.7, Absolute Lymphocytes 3.9 H, Absolute Monocytes 1.0 H, Absolute Eosinophils 0.5, Absolute Basophils 0.1 Recent Imaging Studies: EKG tracing is independently reviewed, and reveals normal sinus rhythm with nonspecific T-wave abnormal Assessment/Plan Assessment/Plan Assessment: 1. Chest pain, possible unstable angina 2. Premature ventricular contractions Plan: * N.p.o. after midnight for nuclear stress test * Continue current cardiac medications * Continue IV heparin * Echocardiogram pending * Persantine sestamibi stress test tomorrow Continue telemetry? Yes
[2017-06-28 21:35] VITALS: BP 124/90
[2017-06-28 22:08] LABS: PTT 56 SEC (25-37)
[2017-06-29 06:11] LABS: PTT 99 SEC (25-37)
[2017-06-29 06:30] VITALS: BP 120/78
--- NOTE | 2017-06-29 07:33 | PN- Housestaff ---
Jhonatan Hernández 06/29/17 0732: Subjective Follow-up For: Unstable angina Tele-Events Since Last Visit: SB/NSR HR 56-80 Subjective: Language barrier. As per family patient had no complaints. No acute events overnight Review of Systems Constitutional: Reports: see HPI. Objective Last 24 Hrs of Vital Signs/I&O Vital Signs Date Time Temp Pulse Resp B/P B/P Pulse O2 O2 Flow FiO2 Mean Ox Delivery Rate 06/29 1224 128/62 / 0630 98.2 63 18 120/78 93 03/ 2218 98.2 67 20 93 / 2135 61 124/90 03/ 2107 61 124/90 03/ 1431 98.5 72 18 142/84 94 Room Air Intake & Output 06/29 1600 06/29 0800 06/29 0000 Intake Total 0 174 Output Total Balance 0 174 Intake, IV 74 Intake, Oral 0 100 Patient 174 lb Weight Physical Exam General Appearance: Alert, Oriented X3, Cooperative, No Acute Distress Cardiovascular: Regular Rate, Normal S1, Normal S2, No Murmurs Lungs: Clear to Auscultation, Normal Air Movement Abdomen: Normal Bowel Sounds, Soft, No Tenderness Extremities: No Edema Current Medications: Current Medications Sig/Terell Start time Last Medication Dose Route Stop Time Status Admin Apixaban 2.5 MG BID 06/28 1446 DC PO Aspirin 81 MG DAILY 06/28 1000 AC 03/ PO 1224 Atorvastatin Calcium 80 MG 1700 / 1700 AC 03/ PO 1608 Diltiazem HCl 120 MG DAILY / 1446 DC PO Dipyridamole 50 MG 1000 06/29 1000 CAN Dextrose/Water 30 ML IV 06/29 1003 Dipyridamole 45 MG ONCE ONE 06/29 1000 DC Dextrose/Water 31 ML IV / 1001 Heparin Sodium 2,370 UNIT BOLUS ONE 06/28 2245 DC 06/28 (Porcine) IV 06/28 2246 2341 Heparin Sodium 25,000 UNIT Q24H 06/27 2200 DC 06/29 (Porcine) IV 0313 Sodium Chloride 500 ML Metoprolol Tartrate 50 MG BID / 1000 AC 03/ PO 1224 Last 24 Hrs of Lab/Wil Results Last 24 Hrs of Labs/Mics: Laboratory Tests 06/29/17 0445: Anion Gap 12, Estimated GFR 55 L, BUN/Creatinine Ratio 14.6, APTT 99 H 06/28/17 2105: APTT 56 H 06/28/17 1800: APTT Cancelled Assessment/Plan Assessment: is a 67 yo man with PMHx. of HTN, HLD presented to ED with a c/o chest pain. His chest pain is pressure in nature, substernal, not relieved with rest, no nitroglycerin given prior to encounter, never had this kind of pain before, his pain metastases to out of 3 components of anginal pain so he has a typical chest pain. Admitted for unstable angina to rule out ID with serial EKG and troponin. Problem list: Unstable angina Plan: * Cardiology recommendations appreciated * Discontinue IV heparin (given for 48 hrs) as per cardiology * Persantine Stress test showed no EKG evidence of stress induced myocardial ischemia. Await nuclear report * Repeat ECG 06/28/17 shows [place] prolongation (212) and unchanged T-wave inversion * ECHO demonstrated stage 1 diastolic dysfunction, EF> 60% * D-dimer negative * Lipid panel, TSH/free T4 nl * UA negative * Continue ASA, metoprolol, atorvastatin Code: FULL Problem List: 1. Unstable angina Pain Ratin Pain Location: NA Pain Goal: Remain pain free Pain Plan: NA Tomorrow's Labs & Rationales: BEP for renal function Lizeth Ricketts 06/29/17 1547: Attending MD Review Statement Attending Statement Attending MD Statement: discuss w/resident/PA/CAR TOP BOLTER, agreed w/resident/PA/CAR TOP BOLTER, reviewed EMR data (avail), discussed with nursing, discussed with case mgmt Attending Assessment/Plan: pt undergoing stress test today . will f/u on results.
--- NOTE | 2017-06-29 09:19 | ECHOCARDIOGRAM REPORT ---
HIREN DAVISON Age: 67 : 1950 Gender: M Exam Date: 06/28/2017 09:04 Exam Location: [address] Ht (in): 64 Wt (lb): 190 BSA: 2.01 BP: 130 / 71 Ordering Physician: Ulysses Arce MD Referring Physician: Law Lilly MD Technologist: Iris Yang [facility] Room Number: [id number] Indications: CHEST PAIN Rhythm: Sinus Technical Quality: Good FINDINGS Left Ventricle Normal size left ventricle. Normal left ventricular wall thickness. Normal left ventricular ejection fraction visually estimated at > 60%. Abnormal relaxation filling pattern of the left ventricle for age (stage 1 diastolic dysfunction). No obvious regional wall motion abnormalities. Right Ventricle Normal right ventricular size and function. Right Atrium Normal right atrial size. Left Atrium Normal left atrial size. Mitral Valve Mitral annular calcification. Aortic Valve Diffuse thickening (sclerosis) of the aortic valve cusps without reduced excursion. Trace aortic regurgitation. Tricuspid Valve Tricuspid valve not well visualized, grossly normal. No evidence of pulmonary hypertension. Trace tricuspid regurgitation. Pulmonic Valve Pulmonic valve not well visualized, grossly normal. Trace pulmonic regurgitation. Pericardium No pericardial effusion. Great Vessels Normal size aortic root. CONCLUSIONS Normal size left ventricle. Normal left ventricular wall thickness. Normal left ventricular ejection fraction visually estimated at > 60%. Abnormal relaxation filling pattern of the left ventricle for age (stage 1 diastolic dysfunction). Trace aortic regurgitation. Trace tricuspid regurgitation. Trace pulmonic regurgitation. Law Lilly M.D. (Electronically Signed) Final Date: 29 June 2017 09:19 MEASUREMENTS (Male / Female) Normal Values 2D ECHO LV Diastolic Diameter PLAX 3.7 cm 4.2 - 5.9 / 3.9 - 5.3 cm LV Systolic Diameter PLAX 2.0 cm 2.1 - 4.0 cm LV Fractional Shortening PLAX 45.9 % 25 - 46 % LV Ejection Fraction 2D Teich 78.1 % IVS Diastolic Thickness 1.1 cm LVPW Diastolic Thickness 1.2 cm LV Relative Wall Thickness 0.6 RV Internal Dim ED PLAX 3.0 cm 1.9 - 3.8 cm LVOT Diameter 2.2 cm Aortic Root Diameter 3.4 cm LA Systolic Diameter LX 3.8 cm 3.0 - 4.0 / 2.7 - 3.8 cm LA Volume 24.0 cm 18 - 58 / 22 - 52 cm Ascending Aorta Diameter 3.6 cm DOPPLER AV Peak Velocity 151.0 cm/s AV Peak Gradient 9.1 mmHg AV Mean Velocity 95.6 cm/s AV Mean Gradient 4.0 mmHg AV Velocity Time Integral 24.2 cm LVOT Peak Velocity 137.0 cm/s LVOT Peak Gradient 7.5 mmHg LVOT Mean Velocity 85.7 cm/s LVOT Mean Gradient 4.0 mmHg LVOT Velocity Time Integral 24.0 cm LVOT Stroke Volume 91.2 cm AV Area Cont Eq vti 3.8 cm AV Area Cont Eq pk 3.4 cm MV Peak Velocity 105.0 cm/s MV Peak Gradient 4.4 mmHg MV Mean Velocity 54.1 cm/s MV Mean Gradient 1.0 mmHg Mitral E Point Velocity 59.2 cm/s Mitral A Point Velocity 67.6 cm/s Mitral E to A Ratio 0.9 MV PHT Velocity 62.5 cm/s MV Deceleration [place] 251.0 cm/s MV Pressure Half Time 74.7 ms MV Area PHT 2.9 cm MV Deceleration Time 261.0 ms TR Peak Velocity 254.0 cm/s TR Peak Gradient 25.8 mmHg Right Atrial Pressure 5.0 mmHg Pulmonary Artery Systolic Pressu 30.8 mmHg Right Ventricular Systolic Press 30.8 mmHg PV Peak Velocity 110.0 cm/s PV Peak Gradient 4.8 mmHg PV Mean Velocity 76.0 cm/s PV Mean Gradient 3.0 mmHg PV Velocity Time Integral 18.5 cm LV E' Lateral Velocity 13.3 cm/s Mitral E to LV E' Lateral Ratio 4.5 LV E' Septal Velocity 5.2 cm/s Mitral E to LV E' Septal Ratio 11.5
--- NOTE | 2017-06-29 15:19 | NUCLEAR MEDICINE REPORT ---
PERSANTINE STRESS AND RESTING SPECT MYOCARDIAL PERFUSION IMAGING STUDY WITH GATED SPECT IMAGES: CLINICAL INDICATION: Chest pain. PROCEDURE: Regional myocardial perfusion was assessed using a 1 day protocol. Stress images were obtained on 06/29/2017 following the intravenous administration of 18.4 mCi Tc 99m Myoview. Stress consisted of 45 mg Persantine given intravenously. Following the sestamibi injection, no aminophylline was given intravenously. Rest images were obtained 06/29/2017 following the intravenous administration of 27.0 mCi Technetium 99m Myoview. Single photon emission tomographic (SPECT) images were obtained. SPECT images were acquired in a 64 x 64 matrix of 64 projections over 180 degrees. These were reconstructed into standard short axis, horizontal and vertical long axis cardiac projections. FINDINGS: The post stress images demonstrate the left ventricular chamber to be normal in size. There is homogeneous distribution of activity in the left ventricular myocardium with no regions of abnormally decreased activity noted. Mildly decreased activity in the inferior wall is present, there is probably due to attenuation by the adjacent diaphragm, and the latter can be visualized on review of the raw acquired projections. The resting images also demonstrate homogeneous distribution of activity in the left ventricular myocardium, and are not significantly changed from the post stress images. The images were obtained using a gated SPECT technique, which permits visualization of wall motion and calculation of the left ventricular ejection fraction. No left ventricular wall motion abnormalities are noted on either the stress or resting study. The calculated left ventricular ejection fraction is 68% on the stress study. No previous study is available for comparison. IMPRESSION: Normal Persantine stress and resting myocardial perfusion study with normal left ventricular wall motion and ejection fraction.
--- NOTE | 2017-06-29 15:33 | IV DIPYRIDAMOLE NUCLEAR STRESS ---
Clinical Diagnosis: Chest Pain Net Sql Developer: Adenike Atkins IV DIPYRIDAMOLE INFUSED: 45 mg IV AMINOPHYLLINE INFUSED: 0 mg PATIENT WEIGHT: 174 lbs INTERPRETATION: The patient's baseline EKG showed normal sinus rhythm at 88 BPM. Baseline B/P 140/90. The patient received 45 mg of dipyridamole infused intravenously over a 4 minute period. TC99M Myoview was injected after dipyridamole infusion. The patient tolerated the infusion well. There were no EKG changes seen following pharmacologic infusion. Arrhythmias: None IMPRESSION: The test was supervised by the interpreting Commercial Shrimping Captain, who was in attendance during the entire test. No EKG evidence of stress induced myocardial ischemia. See separately dictated Nuclear Report.
[2017-06-29 16:03] VITALS: BP 120/70
--- NOTE | 2017-06-29 18:12 | PN- Cardiology ---
Subjective Subjective: No palpitations. No lightheadedness or dizziness. No nausea or vomiting. The patient reports that he is feeling well. No chest pain. No nausea or vomiting. No shortness of breath. Objective Vital Signs and I&Os Vital Signs Date Time Temp Pulse Resp B/P B/P Pulse O2 O2 Flow FiO2 Mean Ox Delivery Rate 06/29 1603 98.0 70 20 120/70 94 / 1224 128/62 / 0630 98.2 63 18 120/78 93 / 2218 98.2 67 20 93 / 2135 61 124/90 06/28 2107 61 124/90 Intake & Output 06/29 1600 06/29 0800 06/29 0000 06/28 1600 06/28 0800 06/28 0000 Intake Total 0 174 1100 748.8 Output Total 300 Balance 0 174 1100 448.8 Intake, IV 74 600 748.8 Intake, Oral 0 100 500 Output, Urine 300 Patient 174 lb 191 lb Weight Physical Exam: Gen: NAD HEENT: normal Lungs: clear to auscultation, normal resp. effort Heart: RRR, S1, S2, no murmurs Abdomen: Soft, nontender, no masses Extremities: No clubbing, cyanosis, or edema. Neuro: Alert and oriented x 3, cranial nerves intact Current Medications: Current Medications Sig/Terell Start time Last Medication Dose Route Stop Time Status Admin Aspirin 81 MG DAILY 06/28 1000 AC 06/29 PO 1224 Atorvastatin Calcium 80 MG 1700 06/28 1700 AC 06/29 PO 1703 Dipyridamole 50 MG 1000 06/29 1000 CAN Dextrose/Water 30 ML IV 06/29 1003 Dipyridamole 45 MG ONCE ONE 06/29 1000 DC Dextrose/Water 31 ML IV 06/29 1001 Heparin Sodium 2,370 UNIT BOLUS ONE 06/28 2245 DC 06/28 (Porcine) IV 06/28 2246 2341 Heparin Sodium 25,000 UNIT Q24H 06/27 2200 DC 06/29 (Porcine) IV 0313 Sodium Chloride 500 ML Metoprolol Tartrate 50 MG BID 06/28 1000 AC 06/29 PO 1224 Results Last 48 Hrs of Labs/Mics: Laboratory Tests 06/29/17 1500: APTT Cancelled 06/29/17 0445: Anion Gap 12, Estimated GFR 55 L, BUN/Creatinine Ratio 14.6, APTT 99 H 06/28/17 2105: APTT 56 H 06/28/17 1800: APTT Cancelled 06/28/17 1200: APTT > 120 *H 06/28/17 0615: Troponin I < 0.01, Triglycerides 134, Cholesterol 126, LDL Cholesterol, Calc 63 L, HDL Cholesterol 37 L, Cholesterol/HDL Ratio 3, TSH 0.439, Free T4 1.32, APTT 37, D-Dimer High Sensitivty < 200 06/28/17 0610: Urine Color YEL, Urine Clarity CLEAR, Urine pH 6.0, Ur Specific [place] 1.025, Urine Protein NEG, Urine Ketones NEG, Urine Nitrite NEG, Urine Bilirubin NEG, Urine Urobilinogen 0.2, Ur Leukocyte Esterase NEG, Ur Microscopic EXAM NOT REQUIRED, Urine Hemoglobin NEG, Urine Glucose NEG 06/28/17 0030: Troponin I Cancelled 06/27/17 2210: Phosphorus 3.7, Magnesium 2.1, Troponin I < 0.01 06/27/17 1838: Anion Gap 12, Estimated GFR 51 L, BUN/Creatinine Ratio 13.6, Glucose 102 H, Hemoglobin A1c 5.7, Calcium 9.8, Total Bilirubin 0.5, AST 23, ALT 35, Alkaline Phosphatase 81, Troponin I < 0.01, Total Protein 7.4, Albumin 4.2, Globulin 3.2, Albumin/Globulin Ratio 1.3, CBC w Diff NO MAN DIFF REQ, RBC 5.00, MCV 91.8, MCH 30.3, MCHC 33.1, RDW 13.9, MPV 8.0, Gran % 51.0, Lymphocytes % 34.6, Monocytes % 8.9, Eosinophils % 4.8, Basophils % 0.7, Absolute Granulocytes 5.7, Absolute Lymphocytes 3.9 H, Absolute Monocytes 1.0 H, Absolute Eosinophils 0.5, Absolute Basophils 0.1 Recent Imaging Studies: Nuclear stress test: Normal Persantine stress and resting myocardial perfusion study with normal left ventricular wall motion and ejection fraction. Echocardiogram: Normal size left ventricle. Normal left ventricular wall thickness. Normal left ventricular ejection fraction visually estimated at > 60%. Abnormal relaxation filling pattern of the left ventricle for age (stage 1 diastolic dysfunction). Trace aortic regurgitation. Trace tricuspid regurgitation. Trace pulmonic regurgitation. Assessment/Plan Assessment/Plan Assessment: 1. Chest pain, ruled out for myocardial infarction. 2. Premature ventricular contractions 3. Normal echocardiogram 4. Normal nuclear stress test Plan: * Cleared for discharge from cardiac standpoint. * Continue metoprolol * Given the negative cardiac workup, would reduce atorvastatin to his prior dose of 20 mg daily * The patient should follow-up with his primary care physician in 1-2 weeks, and return to the emergency department with further chest pain Continue telemetry? No
[2017-06-29 22:03] VITALS: BP 120/80
[2017-06-30 06:00] VITALS: BP 124/76
--- NOTE | 2017-06-30 08:05 | PN- Housestaff ---
See Addendum Subjective Follow-up For: Unstable angina Subjective: Language barrier. As per family patient had no complaints. No acute events overnight Review of Systems Constitutional: Reports: see HPI. Objective Last 24 Hrs of Vital Signs/I&O Vital Signs Date Time Temp Pulse Resp B/P B/P Pulse O2 O2 Flow FiO2 Mean Ox Delivery Rate 06/30 0811 124/70 03/06 0600 98.1 63 20 124/76 97 03/05 2203 97.6 81 20 120/80 96 03/05 2147 68 128/70 03/05 1603 98.0 70 20 120/70 94 03/05 1224 128/62 Intake & Output 06/30 1600 06/30 0800 / 0000 Intake Total 400 860 Output Total 650 Balance 400 210 Intake, IV 60 Intake, Oral 400 800 Output, Urine 650 Patient 176 lb Weight Physical Exam General Appearance: Alert, Oriented X3, Cooperative, No Acute Distress Cardiovascular: Regular Rate, Normal S1, Normal S2, No Murmurs Lungs: Clear to Auscultation, Normal Air Movement Abdomen: Normal Bowel Sounds, Soft, No Tenderness Extremities: No Edema Current Medications: Current Medications Sig/Terell Start time Last Medication Dose Route Stop Time Status Admin Aspirin 81 MG DAILY 06/28 1000 AC /06 PO 0811 Atorvastatin Calcium 20 MG 1700 / 1700 AC PO Atorvastatin Calcium 80 MG 1700 / 1700 DC 03/05 PO 1703 Heparin Sodium 25,000 UNIT Q24H / 2200 DC 03/ (Porcine) IV 0313 Sodium Chloride 500 ML Metoprolol Tartrate 50 MG BID 06/28 1000 AC / PO 0811 Last 24 Hrs of Lab/Wil Results Last 24 Hrs of Labs/Mics: Laboratory Tests 06/30/17 0652: Anion Gap 11, Estimated GFR > 60, BUN/Creatinine Ratio 19.1 06/29/17 1500: APTT Cancelled Assessment/Plan Assessment: is a 67 yo man with PMHx. of HTN, HLD presented to ED with a c/o chest pain. His chest pain is pressure in nature, substernal, not relieved with rest, no nitroglycerin given prior to encounter, never had this kind of pain before, his pain metastases to out of 3 components of anginal pain so he has a typical chest pain. Admitted for unstable angina to rule out WI with serial EKG and troponin. Problem list: Chest pain - r/o WI Plan: * Cardiology recommendations appreciated * Discontinued IV heparin (given for 48 hrs) as per cardiology * Persantine Stress test showed no EKG evidence of stress induced myocardial ischemia * Repeat ECG 06/28/17 shows MD prolongation (212) and unchanged T-wave inversion * ECHO demonstrated stage 1 diastolic dysfunction, EF> 60% * D-dimer negative * Lipid panel, TSH/free T4 nl * UA negative * Continue ASA, metoprolol, atorvastatin * Patient stable for discharge today Problem List: 1. Chest pain Pain Ratin Pain Location: NA Pain Goal: Remain pain free Pain Plan: NA Tomorrow's Labs & Rationales: None
[2017-06-30] MEDS ORDERED: ASPIRIN81 M4 PO (08:07)
--- NOTE | 2017-06-30 08:10 | Patient Discharge Instructions ---
Discharge Instructions General Discharge Information You were seen/treated for: Chest pain, ruled out for myocardial infarction You had these procedures: Normal nuclear stress test Watch for these problems: return to the emergency department with further chest pain Special Instructions: follow-up with his primary care physician in 1-2 weeks Diet Continue normal diet: Yes Activity Other activity limits: As tolerated Acute Coronary Syndrome Inclusion Criteria At DC or during hospital stay patient has or had the following: ACS DIAGNOSIS Yes Discharge Core Measures Meds if any: Prescribed or Continued at Discharge Meds if any: NOT Prescribed or Continued at Discharge Congestive Heart Failure Inclusion Criteria At DC or during hospital stay patient has or had the following: CHF DIAGNOSIS No Discharge Core Measures Meds if any: Prescribed or Continued at Discharge Meds if any: NOT Prescribed or Continued at Discharge Cerebrovascular accident Inclusion Criteria At DC or during hospital stay patient has or had the following: CVA/TIA Diagnosis No (decreasing to 100) Discharge Core Measures Meds if any: Prescribed or Continued at Discharge Meds if any: NOT Prescribed or Continued at Discharge Venous thromboembolism Inclusion Criteria VTE Diagnosis No VTE Type NONE VTE Confirmed by (Test) NONE Discharge Core Measures - Per Current guidelines, there needs to be overlap - treatment for the first 5 days of Warfarin therapy. - If discharged on Warfarin prior to 5 days of - overlap therapy, the patient will need to be - assessed for post discharge needs including - *Post discharge parental anticoagulation - *Warfarin and/or parental anticoagulation education - *Follow up date to check INR post discharge At least 5 days overlap therapy as Inpatient No Meds if any: Prescribed or Continued at Discharge Note: Overlap Therapy is Warfarin and Anticoagulant Meds if any: NOT Prescribed or Continued at Discharge
[2017-06-30 08:11] VITALS: BP 124/70
--- NOTE | 2017-06-30 11:37 | Discharge Summary ---
Visit Information Visit Dates Admission Date: 06/27/17 Discharge Date: 06/30/17 Hospital Course Course Attending Physician: Liliam HDEZ,Lizeth Campbell Primary Care Physician: Patient Has No Primary Care Dr Hospital Course: is a 67 yo man with PMHx. of HTN, HLD presented to ED with a c/o chest pain. His chest pain is pressure in nature, substernal, not relieved with rest, no nitroglycerin given prior to encounter, never had this kind of pain before, his pain metastases to out of 3 components of anginal pain so he has a typical chest pain. Admitted for unstable angina to rule out MT with serial EKG and troponin. Labs on admission: WBC 11.1, Creat 1.4 (no baseline available), glucose 102, LFTs normal, troponin <0.01. ECG: sinus rhythm, LAD, PVC's, Qtc 438, subtle T-wave flattening in inferior leads (no old ECG to compare) Problem list: Chest pain Premature ventricular contractions Patient remained stable during his hospital course and did not require oxygen supplementation. Cardiology was consulted. Patient was initially started on IV heparin but discontinued after 48 hours as per cardiology recommendations. His serial troponins were negative and ECG was unchanged. D-dimer was negative. Lipid panel and TSH/free T4 were within normal limits. Persantine Stress test was normal. ECHO demonstrated stage 1 diastolic dysfunction, EF> 60%. He was discharged home with aspirin and was instructed to continue his prescribed home medications Allergies: Coded Allergies: No Known Allergies (06/27/17) Pertinent Lab Results: 06/29/17-1000 MYOCARDIAL PERFUSION IMAGING FINDINGS: The post stress images demonstrate the left ventricular chamber to be normal in size. There is homogeneous distribution of activity in the left ventricular myocardium with no regions of abnormally decreased activity noted. Mildly decreased activity in the inferior wall is present, there is probably due to attenuation by the adjacent diaphragm, and the latter can be visualized on review of the raw acquired projections. The resting images also demonstrate homogeneous distribution of activity in the left ventricular myocardium, and are not significantly changed from the post stress images. The images were obtained using a gated SPECT technique, which permits visualization of wall motion and calculation of the left ventricular ejection fraction. No left ventricular wall motion abnormalities are noted on either the stress or resting study. The calculated left ventricular ejection fraction is 68% on the stress study. No previous study is available for comparison. IMPRESSION: Normal Persantine stress and resting myocardial perfusion study with normal left ventricular wall motion and ejection fraction. 06/28/17-2209 ECHOCARDIOGRAM CONCLUSIONS Normal size left ventricle. Normal left ventricular wall thickness. Normal left ventricular ejection fraction visually estimated at > 60%. Abnormal relaxation filling pattern of the left ventricle for age (stage 1 diastolic dysfunction). Trace aortic regurgitation. Trace tricuspid regurgitation. Trace pulmonic regurgitation. 06/27/17 XRY-CHEST XRAY, TWO VIEWS FINDINGS: No significant abnormality is noted involving the heart, lungs, mediastinum, bony thorax or soft tissues. Age indeterminant L1 vertebral body anterior wedging. IMPRESSION: No acute pulmonary pathology demonstrated. No radiographic explanation for the patient's clinical symptoms. Age indeterminant L1 vertebral body anterior wedging. Disposition Summary Disposition Principal Diagnosis: Chest pain Additional Diagnosis: Premature ventricular contractions Discharge Disposition: home or self care Discharge Instructions General Discharge Information Code Status: Full Code Patient's Diet: Heart healthy Patient's Activity: As tolerated Follow-Up Instructions/Appts: Follow-up with his primary care physician in 1-2 weeks Medications at Discharge Discharge Medications: Continue taking these medications: Metoprolol Tartrate (Lopressor) 100 MG TABLET 0.5 Tablet ORAL TWICE DAILY Comments: Last Taken:06/30/17 Time:1000 Atorvastatin Calcium (Atorvastatin Calcium) 20 MG TABLET 1 Tablet ORAL DAILY Comments: Last Taken:06/29/17 Time:5PM [LERCANIDIPINE/ENALPR] (Unknown Strength) 0.5 Tablet ORAL TWICE DAILY [CARDIOPIRIN] (Unknown Strength) MG 1 Tablet ORAL DAILY Start taking the following new medications: Aspirin (Aspirin*) 81 MG TAB.CHEW 81 Milligram ORAL DAILY Qty = 30 No Refills Comments: Last Taken:06/30/17 Time:1000 Copies To: Maxx HDEZ,Law Lilly MD,Law
--- NOTE | 2017-06-30 12:59 | PN- Cardiology ---
Subjective Subjective: No palpitations. No lightheadedness or dizziness. No nausea or vomiting. The patient reports that he is feeling well. No chest pain. No nausea or vomiting. No shortness of breath. Objective Vital Signs and I&Os Vital Signs Date Time Temp Pulse Resp B/P B/P Pulse O2 O2 Flow FiO2 Mean Ox Delivery Rate 06/30 0811 124/70 03/06 0600 98.1 63 20 124/76 97 03/05 2203 97.6 81 20 120/80 96 / 2147 68 128/70 03/05 1603 98.0 70 20 120/70 94 Intake & Output 06/30 1600 06/30 0800 / 0000 06/29 1600 06/29 0800 / 0000 Intake Total 400 860 0 174 Output Total 650 Balance 400 210 0 174 Intake, IV 60 74 Intake, Oral 400 800 0 100 Output, Urine 650 Patient 176 lb 174 lb Weight Physical Exam: Gen: NAD HEENT: normal Lungs: clear to auscultation, normal resp. effort Heart: RRR, S1, S2, no murmurs Abdomen: Soft, nontender, no masses Extremities: No clubbing, cyanosis, or edema. Neuro: Alert and oriented x 3, cranial nerves intact Current Medications: Current Medications Sig/Terell Start time Last Medication Dose Route Stop Time Status Admin Aspirin 81 MG DAILY 06/28 1000 DCD 03/06 PO 0811 Atorvastatin Calcium 20 MG 1700 /06 1700 DCD PO Atorvastatin Calcium 80 MG 1700 / 1700 DC 03/05 PO 1703 Heparin Sodium 25,000 UNIT Q24H 06/27 2200 DC 06/29 (Porcine) IV 0313 Sodium Chloride 500 ML Metoprolol Tartrate 50 MG BID 06/28 1000 DCD 03/06 PO 0811 Results Last 48 Hrs of Labs/Mics: Laboratory Tests 06/30/17 0652: Anion Gap 11, Estimated GFR > 60, BUN/Creatinine Ratio 19.1 06/29/17 1500: APTT Cancelled 06/29/17 0445: Anion Gap 12, Estimated GFR 55 L, BUN/Creatinine Ratio 14.6, APTT 99 H 06/28/17 2105: APTT 56 H 06/28/17 1800: APTT Cancelled Recent Imaging Studies: Echocardiogram: Normal size left ventricle. Normal left ventricular wall thickness. Normal left ventricular ejection fraction visually estimated at > 60%. Abnormal relaxation filling pattern of the left ventricle for age (stage 1 diastolic dysfunction). Trace aortic regurgitation. Trace tricuspid regurgitation. Trace pulmonic regurgitation. Assessment/Plan Assessment/Plan Assessment: 1. Chest pain, ruled out for myocardial infarction. 2. Premature ventricular contractions 3. Normal echocardiogram 4. Normal nuclear stress test Plan: * Cleared for discharge from cardiac standpoint. * Continue metoprolol * Continue statin * The patient should follow-up with his primary care physician in 1-2 weeks, and return to the emergency department with further chest pain Continue telemetry? No
== END 2017-06-30 11:26 ==
LOC: ERH 18:10 → 1NO 20:27 → ERHI 20:27 → ENRESERV 21:39 → ENTRNSPT 22:13 → EDTRNSPT 22:19 → EDTRNSPTSTS 22:19 → 1NO 22:23 → CMPTRNSPT 06-28 06:56 → 1NO 06-29 08:20 → ENPENDDIS 06-30 10:22 → ENTRNSPT 06-30 11:12 → 1NO 06-30 11:26 → EDTRNSPTSTS 06-30 11:26 → CMPTRNSPT 06-30 11:42
PROVIDERS: Physician Assistant; Student in an Organized Health Care Education/Training Program
DX: I20.0 Unstable angina (principal); Z79.82 Long term (current) use of aspirin; I10 Essential (primary) hypertension; E78.5 Hyperlipidemia, unspecified; I49.3 Ventricular premature depolarization; Z87.891 Personal history of nicotine dependence
CPT/HCPCS: 36592; 71046; 78452; 81003; 82436; 93005; 93010; 93016; 93017; 93306; 96372; A9502; G0378; J1245; J1644; J3490